=== PATIENT | female | born 1960 | race Asian ===

== ENCOUNTER 2017-03-17 03:14 | Emergency (ER) | payer SELFPAY ==
[~2017-03-17] VITALS: Ht 160 cm; Wt 70.5 kg
[2017-03-17 03:17] VITALS: Ht 160 cm; Wt 70.5 kg
[2017-03-17] MEDS ORDERED: FAMOTIDINE 20 MG INJ IV STA (03:27)
[2017-03-17] MEDS ORDERED: ONDANSETRON 4 MG INJ IV STA (03:27)
[2017-03-17] MEDS ORDERED: KETOROLAC 15 MG INJ IV STA (03:27)
[2017-03-17] MEDS ORDERED: SOD CHLORIDE 0.9% 1,000 ML IV STA (03:27)
[2017-03-17 04:08] LABS: BASOPHILS % 0.4 % (0.0-2.0); EOSINOPHILS # 0.2 10^3/ul (0.0-0.5); HEMATOCRIT 40.5 % (37.0-47.0); LYMPHOCYTES # 3.2 10^3/ul (0.8-2.9); MEAN CORPUSCULAR HEMOGLOBIN 26.9 pg (29.0-33.0); MEAN CORPUSCULAR HGB CONC 32.1 g/dl (32.0-37.0); MEAN CORPUSCULAR VOLUME 83.7 fl (82.0-101.0); MEAN PLATELET VOLUME 9.7 fl (7.4-10.4); MONOCYTE # 0.6 10^3/ul (0.3-0.9); MONOCYTES % 6.3 % (0.0-11.0); NEUTROPHIL # 5.3 10^3/ul (1.6-7.5); PLATELET COUNT 273 10^3/UL (140-415); RED BLOOD COUNT 4.84 10^6/ul (4.20-5.40); RED CELL DISTRIBUTION WIDTH 12.8 % (11.5-14.5); WHITE BLOOD COUNT 9.4 10^3/ul (4.8-10.8)
--- NOTE | 2017-03-17 04:31 | RADRPT ---
PROCEDURE: Abdominal ultrasound, limited. CLINICAL INDICATION: Abdominal pain. TECHNIQUE: Multiple real-time images were acquired of the patient's right upper abdomen utilizing a high resolution transducer. COMPARISON: None FINDINGS: The liver demonstrates increased echogenicity and size measuring 16.8 cm. There is no focal mass or intrahepatic biliary ductal dilatation. The portal vein is patent. The gallbladder is not distend ed. No gallstones are identified. There is small amount of echogenic sludge within the gallbladder. There is no pericholecystic fluid or gallbladder wall thickening. The common bile duct measures 4. 8 mm in maximal dimension. The visualized portions of the pancreas are unremarkable. No free fluid is identified. The right kidney is normal size and echogenicity measuring 10.0 cm. There is no focal renal mass or echogenic calculus identified. There is no obstructive uropathy. IMPRESSION: Fatty infiltration of the liver. Small amount of gallbladder sludge. .Seamus Kerr MD, MD Date Time Electronically viewed and signed by .Seamus Kerr MD, MD on 03/17/2017 04:31 .T/
[2017-03-17 04:37] LABS: ADD UMIC YES; UR ASCORBIC ACID NEGATIVE (NEGATIVE); UR BILIRUBIN (Dip) NEGATIVE (NEGATIVE); UR BLOOD (Dip) 1+ mg/dL (NEGATIVE); UR CLARITY CLEAR (CLEAR); UR COLOR STRAW (YELLOW); UR GLUCOSE (Dip) 3+ mg/dL (NEGATIVE); UR KETONES (Dip) TRACE mg/dL (NEGATIVE); UR LEUKOCYTE ESTERASE (Dip) NEGATIVE Leu/ul (NEGATIVE); UR MUCUS FEW /HPF (NONE SEEN); UR NITRITE (Dip) NEGATIVE (NEGATIVE); UR RBC 4 /HPF (0-5); UR SQUAMOUS EPITHELIAL CELL FEW /HPF (FEW); UR TOTAL PROTEIN (Dip) NEGATIVE (NEGATIVE); UR UROBILINOGEN (Dip) NEGATIVE (NEGATIVE)
[2017-03-17 04:44] LABS: ALBUMIN 4.4 g/dl (3.3-4.9); ALBUMIN/GLOBULIN RATIO 1.29; BILIRUBIN,INDIRECT 0.1 mg/dl (0-1.1); BILIRUBIN,TOTAL 0.1 mg/dl (0.2-1.3); CALCIUM 9.9 mg/dl (8.4-10.2); CREATININE 0.78 mg/dl (0.44-1.00); POTASSIUM 3.7 mmol/L (3.5-5.1); TOTAL PROTEIN 7.8 g/dl (6.1-8.1)
[2017-03-17] MEDS ORDERED: FAMO-96 PO (04:58)
--- NOTE | 2017-03-17 04:58 | ERD ---
ER Documentation Chief Complaint Date/Time DATE: 03/17/17 TIME: 04:55 Chief Complaint mid abdominal pain with N/V that started about an hour ago HPI This 57-year-old female presents to the emergency room for evaluation of abdominal cramping, nausea and vomiting for 1 hour. The patient states that her abdominal cramping is located in the midportion of abdomen with no radiation. She states that she was nauseous and vomited once. She denies any blood in her vomit or stool. She denies any trauma and came to the emergency room for evaluation. She denies aggravating or relieving factors for her symptoms ROS All systems reviewed and are negative except as per history of present illness. Allergies Allergies: Coded Allergies: No Known Allergy (Unverified , 03/17/17) PMhx/Soc History of Surgery: Yes (TOTAL HYSTERECTOMY) Anesthesia Reaction: No Hx Neurological Disorder: No Hx Respiratory Disorders: No Hx Cardiac Disorders: No Hx Psychiatric Problems: No Hx Miscellaneous Medical Probl: Yes (UTERINE CA, DM) Hx Alcohol Use: No Hx Substance Use: No Hx Tobacco Use: No Smoking Status: Unknown if ever smoked Physical Exam Vitals Vital Signs Date Time Temp Pulse Resp B/P Pulse Ox O2 Delivery O2 Flow Rate FiO2 03/17/17 03:17 97.5 65 22 146/79 99 Physical Exam INITIAL VITAL SIGNS: Reviewed by me GENERAL: The patient is well developed and appropriate for usual state of health in no apparent distress HEENT: Pupils equal, round, and reactive to light. EOMI. There is no scleral icterus. NECK: C-spine is soft and supple, there is no meningismus. There is no cervical lymphadenopathy. LUNGS: Clear to auscultation bilaterally. There are no rales, wheezes or rhonchi. HEART: Regular rate and rhythm, no murmurs, clicks, rubs or gallops. ABDOMEN: Positive Pearl sign, otherwise soft, non-tender, non-distended. There are bowel sounds in all four quadrants. No rebound or guarding. EXTREMITIES: There is no peripheral cyanosis or edema. No focal swelling or erythema. NEUROLOGICAL: The patient moves all four extremities with 5/5 strength. Cranial nerves II - XII are intact. Normal gait. Alert and oriented SKIN: There is no apparent rash or petechiae. HEME/LYMPHATIC: There is no evidence of excessive bruising or lymphedema. PSYCHIATRIC: The patient does not appear anxious or depressed. Result Diagram: 03/17/177 03/17/17316 Results 24 hrs Laboratory Tests Test 03/17/17 03:17 03/17/17 04:00 White Blood Count 9.410^3/ul Red Blood Count 4.8410^6/ul Hemoglobin 13.0g/dl Hematocrit 40.5% Mean Corpuscular Volume 83.7fl Mean Corpuscular Hemoglobin 26.9pg Mean Corpuscular Hemoglobin Concent 32.1g/dl Red Cell Distribution Width 12.8% Platelet Count 44475^3/UL Mean Platelet Volume 9.7fl Neutrophils % 57.0% Lymphocytes % 34.0% Monocytes % 6.3% Eosinophils % 2.0% Basophils % 0.4% Nucleated Red Blood Cells % 0.0/100WBC Neutrophils # 5.310^3/ul Lymphocytes # 3.210^3/ul Monocytes # 0.610^3/ul Eosinophils # 0.210^3/ul Basophils # 0.010^3/ul Nucleated Red Blood Cells # 0.010^3/ul Sodium Level 149mmol/L Potassium Level 3.7mmol/L Chloride Level 102mmol/L Carbon Dioxide Level 27mmol/L Anion Gap 24 Blood Urea Nitrogen 11mg/dl Creatinine 0.78mg/dl Glucose Level 176mg/dl Calcium Level 9.9mg/dl Total Bilirubin 0.1mg/dl Direct Bilirubin 0.00mg/dl Indirect Bilirubin 0.1mg/dl Aspartate Amino Transf (AST/SGOT) 28IU/L Alanine Aminotransferase (ALT/SGPT) 57IU/L Alkaline Phosphatase 114IU/L Total Protein 7.8g/dl Albumin 4.4g/dl Globulin 3.40g/dl Albumin/Globulin Ratio 1.29 Lipase 165U/L Urine Color STRAW Urine Clarity CLEAR Urine pH 6.0 Urine Specific [place] 1.030 Urine Ketones TRACEmg/dL Urine Nitrite NEGATIVEmg/dL Urine Bilirubin NEGATIVEmg/dL Urine Urobilinogen NEGATIVEmg/dL Urine Leukocyte Esterase NEGATIVELeu/ul Urine Microscopic RBC 4/HPF Urine Microscopic WBC 3/HPF Urine Squamous Epithelial Cells FEW/HPF Urine Mucus FEW/HPF Urine Hemoglobin 1+mg/dL Urine Glucose 3+mg/dL Urine Total Protein NEGATIVEmg/dl Current Medications Medications (Trade) Dose Ordered Sig/Raul Route PRN Reason Start Time Stop Time Status Last Admin Dose Admin Sodium Chloride (NS) 1,000 ml @ 1,000 mls/hr Q1H STAT IV 03/17/17 03:27 03/17/17 04:26 DC 03/17/17 04:08 Ondansetron HCl (Zofran Inj) 4 mg ONCE STAT IV 03/17/17 03:27 03/17/17 03:29 DC 03/17/17 04:09 Famotidine (Pepcid Iv) 20 mg ONCE STAT IV 03/17/17 03:27 03/17/17 03:29 DC 03/17/17 04:09 Ketorolac Tromethamine (Toradol) 15 mg ONCE STAT IV 03/17/17 03:27 03/17/17 03:29 DC 03/17/17 04:09 Procedures/MDM Ultrasound gallbladder: Fatty infiltration of the liver. Small amount of gallbladder sludge. This 57-year-old female with a history of diabetes presented to the emergency room for evaluation of abdominal cramping, nausea and vomiting for 1 hour. I evaluated this patient she did have right upper quadrant tenderness on my exam. Ultrasound was obtained which does not show any signs of cholecystitis. This patient's white blood cell count is not elevated, she is afebrile, and hemodynamically stable. She was given morphine and Pepcid and Zofran and when I reevaluated her the patient states she is feeling much better at this time. The patient is nontoxic-appearing and is tolerating p.o. at this time. She will be discharged home with a prescription for Pepcid for gastritis. Differential diagnoses entertained was broad with potential high acuity. Patient has been evaluated for appendicitis, cholecystitis, and other high risk medical and surgical causes of abdominal pain. Ultimately the patient's evaluation is nondiagnostic. Based on the patient's lack of risk factors, as well as the patient's clinical, laboratory, and imaging data, the patient appears to be low risk for these high risk causes of abdominal pain. Departure Diagnosis: Primary Impression: Abdominal pain Additional Impression: Gastritis Condition: Stable DEWEY ELIZALDE DO Mar 17, 2017 04:58
[2017-03-17 05:07] VITALS: BP 119/67; PULSE 68; RESP 18
== END 2017-03-17 05:14 | disposition home or self-care (01) ==
LOC: E/R 03:14
DX: R10.9 Unspecified abdominal pain (principal); K29.70 Gastritis, unspecified, without bleeding; E11.9 Type 2 diabetes mellitus without complications; R11.2 Nausea with vomiting, unspecified; Z85.41 Personal history of malignant neoplasm of cervix uteri
CPT/HCPCS: 36415; 76705; 80053; 81001; 83690; 85025; 96374; 96375; 99285; J1885; J2405; J7030